=== PATIENT | female | born 1985 | race Caucasian/White ===

== ENCOUNTER → 2018-10-27 | Outpatient (CLI) | payer OTHER ==
[~2018-10-27] MED LIST: ONDA4 PO; TERC.4TC PV
== END | disposition home or self-care (01) ==
LOC: LAB EV 10:54 → LAB SHORT 10:54
DX: J02.9 Acute pharyngitis, unspecified (principal)
CPT/HCPCS: 87070

== ENCOUNTER 2021-09-17 09:29 | Day surgery (SDC) | payer OTHER ==
[~2021-09-17] VITALS: Ht 177.8 cm; Wt 168.2 kg
[2021-09-17] MEDS ORDERED: ALBU8HFA2 (10:03)
[2021-09-17] MEDS ORDERED: 1/2 NS 250ml250 ML (10:03)
--- NOTE | 2021-09-18 10:38 | NUR ---
09/18/21 1038 Kori Rocha VERIFICATIONS: EDIT CHART.
== END 2021-09-17 23:17 | disposition home or self-care (01) ==
LOC: ORD 09:29 → ORSCMMR 09:30 → ORD 11:00
PROVIDERS: Obstetrics & Gynecology
PROC: 0UT74ZZ Resection of Bilateral Fallopian Tubes, Percutaneous Endoscopic Approach (ICD-10-PCS; principal; 2021-09-17 11:00)
PROC: 0UPDXHZ Removal of Contraceptive Device from Uterus and Cervix, External Approach (ICD-10-PCS; 2021-09-17 11:00)
DX: Z30.2 Encounter for sterilization (principal); N80.3 Endometriosis of pelvic peritoneum; J45.909 Unspecified asthma, uncomplicated; E66.9 Obesity, unspecified; Z68.43 Body mass index [BMI] 50.0-59.9, adult; Z87.891 Personal history of nicotine dependence
CPT/HCPCS: J0171; J0690; J1100; J2250; J2405; J2550; J2704; J2765; J3010; J7120

== ENCOUNTER 2021-09-19 11:57 | Emergency (ER) | payer OTHER ==
[~2021-09-19] VITALS: Ht 177.8 cm; Wt 167.8 kg
[~2021-09-19 11:57] MED LIST changes: +1/2 NS 250ml250 ML; +ALBU8HFA2
[2021-09-19] MEDS ORDERED: PROM25 PO (12:15)
[2021-09-19] MEDS ORDERED: IBUP800 PO (12:15)
[2021-09-19] MEDS ORDERED: Percocet 5-3251 EACH PO ×2 (12:16→13:48)
[2021-09-19 12:33] LABS: BASOPHILS ABSOLUTE AUTO 0.11 K/mm3 (0.00-0.23); BASOPHILS PERCENT AUTO 1 % (0-2); EOSINOPHILS ABSOLUTE AUTO 0.17 K/mm3 (0.00-0.68); EOSINOPHILS PERCENT AUTO 1 % (0-6); Hematocrit 43.2 % (33.0-51.0); Hemoglobin 13.8 g/dL (11.5-16.0); IMMATURE GRAN ABSOLUTE AUTO 0.13 K/mm3 (0.00-0.10); IMMATURE GRAN PERCENT AUTO 1 % (0-1); LYMPHOCYTES ABSOLUTE AUTO 4.21 K/mm3 (0.84-5.20); LYMPHOCYTES PERCENT AUTO 31 % (21-46); MONOCYTES ABSOLUTE AUTO 1.06 K/mm3 (0.16-1.47); MONOCYTES PERCENT AUTO 8 % (4-13); Mean Corpuscular HGB 29.7 pg (26.0-34.0); Mean Corpuscular HGB Conc 31.9 g/dL (31.5-36.5); Mean Corpuscular Volume 93 fL (80-100); Mean Platelet Volume 9.7 fL (9.1-12.4); NEUTROPHILS ABSOLUTE AUTO 7.79 K/mm3 (1.96-9.15); NEUTROPHILS PERCENT AUTO 58 % (41-73); Platelet Count 295 K/mm3 (150-400); RDW Coefficient Variation 12.7 % (11.7-14.2); RDW Standard Deviation 43.1 fL (35.1-46.3); Red Blood Cell Count 4.65 M/mm3 (3.80-5.20); White Blood Cell Count 13.47 K/mm3 (4.00-11.30)
[2021-09-19 13:00] LABS: Alanine Aminotransfer (ALT/SGP 40 U/L (12-78); Albumin, Blood 3.1 g/dL (3.4-5.0); Albumin/Globulin Ratio 0.8 (0.8-1.8); Alk Phos 70 U/L (50-136); Anion Gap 5 mmol/L (6-16); Aspartate Aminotrans (AST/SGOT 17 U/L (12-37); Bilirubin, Total 0.3 mg/dL (0.1-1.0); Blood Urea Nitrogen 12 mg/dL (8-24); Bun/Creatinine Ratio 17.4 (12.0-20.0); CO2, Blood 29 mmol/L (21-32); Calcium, Blood 8.1 mg/dL (8.5-10.1); Chloride, Blood 107 mmol/L (98-108); Creatinine, Blood 0.69 mg/dL (0.40-1.00); Globulin, Blood 3.8 g/dL (2.2-4.0); Glomerular Filtration Rate >60 (60-); Glucose, Blood 91 mg/dL (70-99); Potassium, Blood 3.9 mmol/L (3.5-5.5); Sodium, Blood 141 mmol/L (136-145); Total Protein, Blood 6.9 g/dL (6.4-8.2)
== END 2021-09-19 14:15 | disposition home or self-care (01) ==
LOC: ER 11:57
PROVIDERS: Emergency Medicine
DX: G89.18 Other acute postprocedural pain (principal); R10.9 Unspecified abdominal pain; Z90.79 Acquired absence of other genital organ(s)
CPT/HCPCS: 36415; 80053; 85025; 99283; A9270